=== PATIENT | female | born 1990 | race Native Hawaiian/Other Pacific Islander ===

== ENCOUNTER 2019-02-17 14:04 | Outpatient (CLI) | payer OTHER | END 2019-02-17 21:11 | disposition home or self-care (01) | LOC: US 14:04 | DX: M79.662 Pain in left lower leg (principal) ==

== ENCOUNTER 2020-09-23 12:28 | Outpatient (CLI) | payer OTHER | END 2020-09-23 23:59 | disposition home or self-care (01) | LOC: CT 12:28 | DX: G89.18 Other acute postprocedural pain (principal) | CPT/HCPCS: Q9963 ==

== ENCOUNTER 2023-08-12 09:07 | Outpatient (CLI) | payer OTHER | END 2023-08-12 21:23 | disposition home or self-care (01) | LOC: US 09:07 | PROVIDERS: ATTEND Internal Medicine | DX: R10.9 Unspecified abdominal pain (principal); E03.8 Other specified hypothyroidism | CPT/HCPCS: Q9963 ==